=== PATIENT | male | born 1970 | race Native Hawaiian/Other Pacific Islander ===

== ENCOUNTER 2020-12-15 12:05 | Emergency (ER) | payer OTHER ==
[~2020-12-15] VITALS: Ht 167.6 cm; Wt 65.8 kg
[2020-12-15 12:10] VITALS: TEMP 98
[2020-12-15 13:30] VITALS: BP 123/75
== END 2020-12-15 13:30 | disposition home or self-care (01) ==
LOC: ED 12:05
DX: M54.5 Low back pain (principal); G89.29 Other chronic pain; M19.09 Primary osteoarthritis, other specified site; M51.36 Other intervertebral disc degeneration, lumbar region; X50.9XXA Other and unspecified overexertion or strenuous movements or postures, initial encounter; Y92.89 Other specified places as the place of occurrence of the external cause
CPT/HCPCS: 96372; 99283; J1885

== ENCOUNTER 2020-12-17 10:57 | Outpatient (CLI) | payer OTHER | END 2020-12-17 20:36 | disposition home or self-care (01) | LOC: RAD 10:57 | PROVIDERS: ATTEND Nurse Practitioner Family | DX: M54.41 Lumbago with sciatica, right side (principal) ==